=== PATIENT | female | born 1945 | race Caucasian/White ===

== ENCOUNTER 2022-10-16 02:19 | Outpatient (CLI) | payer MEDICARE, OTHER | END 2022-10-16 23:59 | disposition critical access hospital (66) | LOC: EMS 02:19 | DX: R42 Dizziness and giddiness (principal); R00.8 Other abnormalities of heart beat; I49.3 Ventricular premature depolarization | CPT/HCPCS: A0425; A0429 ==

== ENCOUNTER 2022-10-16 02:30 | Emergency (ER) | payer MEDICARE, OTHER ==
--- NOTE | 2022-10-16 02:42 | ED Physician Documentation ---
History of Present Illness - Stated complaint Stated Complaint: DIZZINESS - History obtained from History obtained from: Patient, EMS - Additonal information Additional information: 77-year-old woman with history of SVT on metoprolol, recent cardiac ablation, also on Ambien for insomnia at nighttime, lisinopril, metoprolol, atorvastatin, baby aspirin, presents with dizzy spell tonight. Patient states that she was feeling lightheaded and "almost like I was drunk" and crawled to the bathroom to call 911. ems reports she had multiple pvcs on their monitors en route. patient endorsing lightheadedness when she sits up. denies cp, soa, fever. felt normal yesterday. does endorse another dizzy spell causing her to fall on her bottom in the past 24 h. PD PAST MEDICAL HISTORY - Present Medications Home Medications: Ambulatory Orders Medication Instructions Recorded Confirmed Aspirin [[place] Aspirin EC] 81 mg PO DAILY 10/16/22 10/16/22 Atorvastatin Calcium 40 mg PO DAILY 10/16/22 10/16/22 Ibuprofen 200 - 400 mg PO Q6HR PRN 10/16/22 10/16/22 LORazepam [Ativan] 0.5 mg PO DAILY PRN 10/16/22 10/16/22 Lisinopril [Zestril] 20 mg PO HS 10/16/22 10/16/22 Metoprolol Tartrate [Lopressor] 25 mg PO DAILY 10/16/22 10/16/22 Oxybutynin Chloride [Ditropan Xl] 2.5 mg PO HS 10/16/22 10/16/22 Zolpidem Tartrate [Ambien] 10 mg PO HS 10/16/22 10/16/22 traMADol [Ultram] 50 mg PO HS 10/16/22 10/16/22 - Allergies Allergies/Adverse Reactions: Allergies Allergy/AdvReac Type Severity Reaction Status Date / Time No Known Drug Allergies Allergy Verified 10/16/22 02:43 PD ED PE NORMAL - Vitals Vital signs reviewed: Yes - General General: Alert and oriented X 3, No acute distress, Well developed/nourished - HEENT HEENT: Atraumatic, PERRL, EOMI - Neck Neck: Supple, no meningeal sign - Cardiac Cardiac: RRR - Respiratory Respiratory: No respiratory distress, Clear bilaterally - Abdomen Abdomen: Non tender, Non distended - Derm Derm: Normal color, Warm and dry - Neuro Neuro: Alert and oriented X 3, sagger soak 2-12 intact, No motor deficit, No sensory deficit Eye Opening: Spontaneous Motor: Obeys Commands Verbal: Oriented GCS Score: 15 Results - Vitals Vitals: Vital Signs - 24 hr 10/16/22 10/16/22 10/16/22 02:29 03:17 03:30 Temperature 36.2 C L Heart Rate 82 78 Heart Rate [ 77 Sitting] Heart Rate [ 95 Standing] Heart Rate [ 79 Supine] Respiratory 13 20 Rate Blood Pressure 189/94 H 135/75 H Blood Pressure 167/83 H [Sitting] Blood Pressure 151/95 H [Standing] Blood Pressure 169/87 H [Supine] O2 Saturation 98 93 10/16/22 10/16/22 10/16/22 04:00 04:30 05:00 Temperature Heart Rate 85 79 87 Heart Rate [ Sitting] Heart Rate [ Standing] Heart Rate [ Supine] Respiratory 16 15 14 Rate Blood Pressure 154/79 H 152/90 H 149/71 H Blood Pressure [Sitting] Blood Pressure [Standing] Blood Pressure [Supine] O2 Saturation 97 98 100 Oxygen O2 Source Room air - EKG (time done) 0235 EKG releavant findings:: EKG personally interpreted by author of this note. Relevant findings are: Rate: Rate (enter#) (78) Rhythm: NSR [place]: Normal Intervals: Normal DC QRS: Normal Ischemia: Normal ST segments Other comments: Other comments (abnormal R wave progression in precordials may signify prior ischemic changes) - Labs Labs: Laboratory Tests 10/16/22 10/16/22 02:44 03:26 WBC 9.2 RBC 4.77 Hgb 14.3 Hct 43.4 MCV 91.0 MCH 30.0 MCHC 32.9 RDW 13.2 Plt Count 214 MPV 11.1 H Neut # (Auto) 4.7 Lymph # (Auto) 3.6 H [place] # (Auto) 0.6 Eos # (Auto) 0.3 Baso # (Auto) 0.1 Absolute Nucleated RBC 0.00 Nucleated RBC % 0.0 Sodium 142 Potassium 3.9 Chloride 106 Carbon Dioxide 27 Anion Gap 9.0 BUN 17 Creatinine 0.6 Estimated GFR (MDRD) 96 Glucose 111 H Calcium 9.1 Total Bilirubin 1.0 AST 19 ALT 24 Alkaline Phosphatase 55 Total Protein 7.2 Albumin 4.2 Globulin 3.0 Albumin/Globulin Ratio 1.4 Lipase 27 PD Medical Decision Making - ED course ED course: 77yF p/w lightheadedness tonight of unknown origin, reproducible with position changes. cbc, abdominal panel, cardiac monitoring, ekg, cxr ordered. will also employ orthostatic vital sign testing. Patient does not meet criteria for orthostatic hypotension on exam. she did however become tired and dizzy immediately after testing. 1 L IVF ordered. CBC and abdominal panel unremarkable. CXR wet read by emergency physician - negative for acute cardiopulmonary pathology. EKG NSR with possible old ischemic changes but no old ekg for comparison. plan to d/w patient's nitro worker. attempted to call Dr. Luna, her nitro worker with [facility] in [place] but they do not take overnight call. will [facility] nitro worker recreation aide. d/w Dr. Bello who recommends we admit [facility] for 24 hours of cardiac monitoring, echocardiogram, and increase metoprolol to 25 bid. There are no beds available so we will board her in the ED tonight till AM ED MD takes over at 7am shift change.
[2022-10-16 02:55] LABS: BASOPHILS # (AUTO) 0.1 10^3/uL (0.0-0.1); BASOPHILS % (AUTO) 0.5 %; EOSINOPHILS # (AUTO) 0.3 10^3/uL (0.0-0.7); EOSINOPHILS % (AUTO) 2.7 %; HCT - HEMATOCRIT 43.4 % (37.0-47.0); HGB - HEMOGLOBIN 14.3 g/dL (12.0-16.0); LYMPHOCYTES # (AUTO) 3.6 10^3/uL (1.5-3.5); LYMPHOCYTES % (AUTO) 38.9 %; MEAN CORPUSCULAR HGB CONC 32.9 g/dL (32.0-36.0); MEAN PLATELET VOLUME 11.1 fL (7.9-10.8); MONOCYTES # (AUTO) 0.6 10^3/uL (0.0-1.0); MONOCYTES % (AUTO) 6.2 %; NEUTROPHILS # (AUTO) 4.7 10^3/uL (1.5-6.6); NEUTROPHILS % (AUTO) 51.5 %; PLT - PLATELET COUNT 214 10^3/uL (130-450); RED BLOOD COUNT 4.77 10^6/uL (4.20-5.40); RED CELL DISTRIBUTION WIDTH 13.2 % (12.0-15.0); WHITE BLOOD COUNT 9.2 x10^3/uL (4.8-10.8)
[2022-10-16] MEDS ORDERED: SODIUM CHLORIDE 0.9% 1,000 ML IV STA ×2 (03:28→10:53)
[2022-10-16 03:42] LABS: ALBUMIN 4.2 g/dL (3.2-5.5); ALBUMIN/GLOBULIN RATIO 1.4 (1.0-2.2); CALCIUM 9.1 mg/dL (8.5-10.3); CREATININE 0.6 mg/dL (0.4-1.0); POTASSIUM 3.9 mmol/L (3.5-5.0); TOTAL PROTEIN 7.2 g/dL (6.7-8.2)
--- NOTE | 2022-10-16 08:54 | ED Physician Documentation ---
ED Addendum - Addendum Addendum: Patient signed out to me by Dr. Brock. Patient has a history of SVT. Is on metoprolol daily. Appears to be having dizziness with standing and unsteadiness.Dr. Brock did reach out to cardiology through [facility] as we were unable to reach her senior application software engineer with recommendations to increase metoprolol to 25 mg twice daily and admission for 24 hours for cardiac monitoring. An echocardiogram was also recommended but we do not have that for several days. I did ask for repeat orthostatics this morning which are positive. Patient's heart rate has elevated to 132 While standing (supine and standing were documented in reverse). Twice daily metoprolol has been ordered. There are no a dmission beds available at this time so Patient will remain in the emergency department. 10/16/22 10:59 D/W Dr. Monzon who does not feel patient meets admission criteria at this time. Reviewed orthostatics. As patient is not hypotensive would not meet criteria. Cardiac monitoring overnight for PVCs is not indicated. Recommends further IV fluids and reassessment. 10/16/22 13:39 Patient has received additional IV fluids and has been able to ambulate here steadily. She does report feeling much better than yesterday. 1441 - We have attempted to reach out to her own senior application software engineer to review the case without a call back. 10/16/22 15:07 Dr. Luna (Cardiology, [facility]) called back. Does not recommend increasing the metoprolol to twice a day. Recommend having her continue once daily, making sure she is staying hydrated and taking caution with position changes and follow-up. If she is feeling better then okay to go home. Patient did not have arrhythmias or PVCs noted on the front desk monitor during ED course from the last 10 hours. As she is feeling better and does not meet admission criteria as she appears appropriate for discharge home with close outpatient follow-up. Reviewed the plan with her senior application software engineer as well as the patient and her son who are agreeable. Departure - Departure Disposition: 01 Home, Self Care Clinical Impression: Dizziness Condition: Good Instructions: ED Dizziness [facility] Comments: We have evaluated you for dizziness today and have noticed that at times your heart rate becomes elevated when you change positions. Have spoken to your senior application software engineer who recommends you continue taking your metoprolol just once a day. You did receive your morning dose already. Please continue with Making sure you are staying hydrated. Please take caution when you are changing positions and use the walker as needed to get around. I would recommend taking it easy or over the weekend. I would recommend close follow-up with your PCP or senior application software engineer. If at anytime you develop any new symptoms please consider return to the emergency department. Discharge Date/Time: 10/16/22 16:08
--- NOTE | 2022-10-16 08:56 | XRAY Report ---
PROCEDURE: Chest 1 View X-Ray INDICATIONS: Chest Pain TECHNIQUE: One view of the chest was acquired. COMPARISON: None. FINDINGS: Surgical changes and devices: None. Lungs and pleura: No pleural effusions or pneumothorax. Lungs are clear. Mediastinum: Mediastinal contours appear normal. Heart size is normal. Bones and chest wall: No suspicious bony lesions. Overlying soft tissues appear unremarkable. IMPRESSION: No acute cardiopulmonary process. Reviewed by: Vannesa Arroyo MD on 10/16/2022 8:55 AM PDT Approved by: Vannesa Arroyo MD on 10/16/2022 8:55 AM PDT Station ID: [id number]
[2022-10-16] MEDS ORDERED: METOPROLOL TARTRATE 25 MG TABLET PO SCH (09:00)
[2022-10-16 11:34] VITALS: BP 152/86
== END 2022-10-16 16:03 | disposition home or self-care (01) ==
LOC: ED 02:30
DX: R42 Dizziness and giddiness (principal)
CPT/HCPCS: 36415; 71045; 80053; 83690; 83735; 85025; 93005; 96360; 96361; 99284; A9270